=== PATIENT | female | born 1985 | race Caucasian/White ===

== ENCOUNTER 2017-08-26 13:47 | Emergency (ER) | payer MEDICAID, OTHER, SELFPAY ==
[~2017-08-26] VITALS: Ht 165.1 cm; Wt 82.4 kg
[2017-08-26 13:59] VITALS: BP 122/83
== END 2017-08-26 15:13 | disposition home or self-care (01) ==
LOC: ED 14:30
DX: Z00.00 Encounter for general adult medical examination without abnormal findings (principal)
CPT/HCPCS: 80359; 99283; G0480